=== PATIENT | male | born 1970 | race Two or more races ===

== ENCOUNTER 2019-09-03 13:39 | Emergency (ER) | payer MEDICARE ==
[~2019-09-03] VITALS: Ht 182.9 cm; Wt 72.6 kg
[2019-09-03 13:48] VITALS: BP 145/86
== END 2019-09-03 14:56 | disposition home or self-care (01) ==
LOC: ER 13:42 → EDBD 13:42 → ER 14:56
DX: L03.211 Cellulitis of face (principal); J45.909 Unspecified asthma, uncomplicated; F15.10 Other stimulant abuse, uncomplicated

== ENCOUNTER 2020-02-01 20:51 | Emergency (ER) | payer MEDICARE, MEDICAID ==
[~2020-02-01] VITALS: Ht 172.7 cm; Wt 74.8 kg
[2020-02-01 20:51] VITALS: BP 138/80
--- NOTE | 2020-02-01 21:00 | NUR ---
PT TO ER BB RA, PER EMS PT WAS FOUND LOITERING IN [facility]. ONCE [employer] ARRIVED PATIENT COMPLAINED OF LOWERT EXT PAIN AND WAS TRANSPORTED TO HOSPITAL. PT DENIES ANY TRAUMS. PT AMBULATORY UPON ARRIVAL. PT DENIES ANY TRAUMA. NO SIGNS DEFORMITY NOTED. PT VITAL SIGNS STABLE. NO SIGNS OF DISTRESS NOTED. WILL CONT TO MONITOR PT.
--- NOTE | 2020-02-01 21:39 | NUR ---
PATIENT CAME TO ER BED 14 BIB RA FOR WANDERING/LOITERING IN FRONT OF [facility], PER EMS REPORT. PATIENT IS AWAKE AND ORIENTED, UNWILLING TO COOPERATE AND ANSWER QUESTIONS. PATIENT STATES HE HAS LEG PAIN.
--- NOTE | 2020-02-01 23:39 | NUR ---
Patient given written and verbal discharge instructions. Patient verbalizes understanding of instructions. Patient is ambulatory with steady gait. Refuses offer of senior care placement. Patient given list of available shelters in surrounding area.
== END 2020-02-01 23:40 | disposition home or self-care (01) ==
LOC: ER 20:56
DX: M79.605 Pain in left leg (principal); M79.604 Pain in right leg; G89.29 Other chronic pain

== ENCOUNTER 2022-06-03 21:51 | Emergency (ER) | payer MEDICARE, OTHER ==
[~2022-06-03] VITALS: Ht 182.9 cm; Wt 72.6 kg
[2022-06-03] MEDS ORDERED: ALBUTEROL FS 2.5 MG/0.5 ML VIAL.NEB NEB ONE (22:30)
[2022-06-03] MEDS ORDERED: ALBUTEROL FS 2.5 MG/0.5 ML VIAL.NEB ONE (22:45)
[2022-06-03 22:54] VITALS: BP 138/79
--- NOTE | 2022-06-03 22:54 | NUR ---
RT AT BEDSIDE
--- NOTE | 2022-06-04 00:42 | NUR ---
Patient discharged to home in stable condition. Written and verbal after care instructions given. Patient verbalizes understanding of instruction.
== END 2022-06-04 00:45 | disposition home or self-care (01) ==
LOC: ER 21:56
DX: G89.29 Other chronic pain (principal); M79.662 Pain in left lower leg; M79.661 Pain in right lower leg; M79.89 Other specified soft tissue disorders; J98.01 Acute bronchospasm
CPT/HCPCS: 93970-TC

== ENCOUNTER 2023-03-31 11:04 | Emergency (ER) | payer MEDICAID, MEDICARE, OTHER ==
[~2023-03-31] VITALS: Ht 182.9 cm; Wt 64.4 kg
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
[2023-03-31] MEDS ORDERED: TDAP [DIPH/PERTUSSIS/TET] 0.5 ML VIAL IM ONE ×2 (12:00→13:13)
[2023-03-31] MEDS ORDERED: LIDOCAINE 1%-EPI 1:100,000 50 ML VIAL IJ ONE (12:00)
[2023-03-31] MEDS ORDERED: BACITRACIN ZINC OINT PACKET 1 EA PACKET TP ONE (13:00)
--- NOTE | 2023-03-31 13:28 | NUR ---
Patient discharged to home in stable condition. Written and verbal after care instructions given. Patient verbalizes understanding of instruction.
[2023-03-31 13:29] VITALS: BP 137/88
== END 2023-03-31 13:29 ==
LOC: ER 11:12
DX: S61.411A Laceration without foreign body of right hand, initial encounter (principal); J45.909 Unspecified asthma, uncomplicated; W26.0XXA Contact with knife, initial encounter; Y93.89 Activity, other specified; Y92.89 Other specified places as the place of occurrence of the external cause; Y99.8 Other external cause status
CPT/HCPCS: 99283; 12002; 90471; 90715; J3490; A6403

== ENCOUNTER 2023-04-11 17:55 | Emergency (ER) | payer OTHER ==
[~2023-04-11] VITALS: Ht 182.9 cm; Wt 68.0 kg
[2023-04-11 21:15] VITALS: BP 136/81
--- NOTE | 2023-04-11 21:15 | NUR ---
BIBS W/ CC OF SUICIDAL IDEATION. THINKING OF KILLING HIMSELF BY RUNNING TO TRAFFIC OR JUMPING OFF LEDGE. REQUESTING PSYCH ADMIT. PT A/OX3. TOLERATING R/A WELL WITH NO RESP DISTRESS. SAFETY MEASURES IN PLACE. PT CHANGED IN GOWN, BELONGINGS IN LOCKERS, WANDED BY SECURITY.
--- NOTE | 2023-04-11 21:22 | NUR ---
COVID SWAB DONE AND SENT TO LAB
[2023-04-11 21:44] LABS: BASOPHILS # (AUTO) 0.1 K/uL (0.0-0.2); BASOPHILS % (AUTO) 0.8 % (0.0-2.0); EOSINOPHILS % (AUTO) 4.1 % (0.0-6.0); HEMATOCRIT 31 % (39-51); LYMPHOCYTES # (AUTO) 1.5 K/uL (0.8-4.8); LYMPHOCYTES % (AUTO) 20.6 % (20.0-44.0); MEAN CORPUSCULAR HGB CONC 32 g/dl (31.0-36.0); MEAN CORPUSCULAR VOLUME 92 fL (80-96); MONOCYTES # (AUTO) 0.5 K/uL (0.1-1.30); MONOCYTES % (AUTO) 6.7 % (2.0-12.0); NEUTROPHILS % (AUTO) 67.8 % (43.0-81.0); PLATELET COUNT (AUTO) 367 K/uL (150-450); RED BLOOD CELL COUNT(AUTO) 3.41 MIL/uL (4.5-6.0); WHITE BLOOD COUNT (AUTO) 7.3 K/uL (4.3-11.0)
[2023-04-11 21:51] LABS: CALCIUM, SERUM 9.1 mg/dL (8.5-10.1); CARBON DIOXIDE 23 mmol/L (21-32); CHLORIDE 106 mmol/L (98-107); CREATININE 1.7 mg/dL (0.6-1.3); GLUCOSE 106 mg/dL (74-106); POTASSIUM 4.4 mmol/L (3.5-5.1); SODIUM SERUM 138 mmol/L (136-145); UREA NITROGEN, BLOOD 21 mg/dL (7-18)
[2023-04-11 22:17] LABS: BILIRUBIN,URINE NEGATIVE (NEGATIVE); COLOR,URINE YELLOW (YELLOW); LEUKOCYTE ESTERASE ,URINE NEGATIVE (NEGATIVE); NITRITE, URINE NEGATIVE (NEGATIVE); PROTEIN,URINE NEGATIVE (NEGATIVE); UGLUCOSE NEGATIVE (NEGATIVE)
[2023-04-11 22:20] LABS: ALKALINE PHOSPHATASE 96 U/L (46-116); BILIRUBIN,DIRECT 0.1 mg/dL (0.0-0.2); BILIRUBIN,TOTAL 0.2 mg/dL (0.2-1.0); TOTAL PROTEIN, SERUM 8.1 g/dL (6.4-8.2)
[2023-04-11 22:23] LABS: ALCOHOL, BLOOD < 3 mg/dL (0-10)
[2023-04-11 22:24] LABS: BACTERIA,URINE None seen /HPF (None Seen); RBC,URINE 0-2 /HPF (0-2); WBC,URINE 0-2 /HPF (0-3)
[2023-04-11 22:35] LABS: ALANINE AMINOTRANSFERASE 26 U/L (12-78); ALBUMIN 3.3 g/dL (3.4-5.0); ASPARTATE AMINOTRANSFERASE 13 U/L (15-37)
--- NOTE | 2023-04-11 23:27 | NUR ---
faxed clinicals to [facility]
--- NOTE | 2023-04-11 23:55 | NUR ---
pt is accepted at [facility] under caare of dr Medina. eta for [facility] ambulance 45-60 min
--- NOTE | 2023-04-12 00:39 | NUR ---
REPORT GIVEN TO [facility] EMT TO TRANSFER PT TO [facility].
--- NOTE | 2023-04-12 00:54 | NUR ---
PT TRANSFERRED TO [facility]IA [facility]. ALL BELONGINGS WITH PT
--- NOTE | 2023-04-12 00:56 | NUR ---
PT WAS TRASFERRED TO [facility] IN STABLE CONDITION. BELONGINGS PICKED UP
== END 2023-04-12 00:58 ==
LOC: ER 18:05
DX: R45.851 Suicidal ideations (principal); J45.909 Unspecified asthma, uncomplicated; M19.90 Unspecified osteoarthritis, unspecified site; Z20.822 Contact with and (suspected) exposure to COVID-19
CPT/HCPCS: 99285; 85025; 80048; 80076; 81001; 36415; 87426; 80143; 80320; 80307; C9803; G0480